=== PATIENT | female | born 1970 | race Caucasian/White ===

== ENCOUNTER 2019-02-06 05:54 | Day surgery (SDC) | payer MEDICAID ==
[2019-02-01 17:33] LABS: BASOPHILS % (AUTO) 0.2 % (0.0-2.0); EOSINOPHILS # (AUTO) 0.1 K/uL (0-0.4); EOSINOPHILS % (AUTO) 1.2 % (0.0-4.0); HEMATOCRIT 38.6 % (36-48); HEMOGLOBIN 12.8 g/dL (12.0-16.0); LYMPHOCYTES # (AUTO) 1.8 K/uL (2.5-16.5); LYMPHOCYTES % (AUTO) 29.1 % (20.5-51.1); MEAN CORPUSCULAR HEMOGLOBIN 28 pg (27-31); MEAN CORPUSCULAR HGB CONC 33 g/dL (33-37); MEAN CORPUSCULAR VOLUME 83.8 fL (80-94); MONOCYTES # (AUTO) 0.7 K/uL (0.8-1.0); MONOCYTES % (AUTO) 11.8 % (1.7-9.3); NEUTROPHILS # (AUTO) 3.6 K/uL (1.8-7.7); NEUTROPHILS % (AUTO) 57.7 % (42.2-75.2); PLATELET COUNT (AUTO) 201 K/uL (140-450); RED BLOOD CELL COUNT(AUTO) 4.61 MIL/uL (4.20-5.40); RED CELL DISTRIBUTION WIDTH 13.4 % (11.6-13.7); WHITE BLOOD COUNT (AUTO) 6.2 K/uL (4.8-10.8)
[2019-02-01 17:52] LABS: ALBUMIN 3.9 g/dL (3.4-5.0); ANION GAP 11.8 (8-16); CARBON DIOXIDE 26.4 mmol/L (21-32); POTASSIUM 4.2 mmol/L (3.5-5.1); TOTAL BILIRUBIN 0.6 mg/dL (0.0-1.0)
[~2019-02-06] VITALS: Ht 157.5 cm; Wt 87.5 kg
[2019-02-06] MEDS ORDERED: ceFAZolin 1,000 MG VIAL ONE (07:28)
[2019-02-06] MEDS ORDERED: LIDOCAINE 1% 500 MG/50 ML VIAL ONE (07:28)
[2019-02-06] MEDS ORDERED: BUPIVACAINE-MPF 0.25% 30 ML VIAL INJ ONE (07:29)
[2019-02-06] MEDS ORDERED: PROPOFOL 200 MG/20 ML VIAL IV ONE (07:40)
[2019-02-06] MEDS ORDERED: MIDAZOLAM 2 MG/2 ML VIAL ONE (07:58)
[2019-02-06] MEDS ORDERED: fentaNYL 0.05 MG/ML VIAL ONE (07:58)
[2019-02-06] MEDS ORDERED: LACTATED RINGERS 1,000 ML IV SCH (08:12)
[2019-02-06] MEDS ORDERED: MEPERIDINE 25 MG/ML SYR IVP PRN (08:15)
[2019-02-06] MEDS ORDERED: ONDANSETRON 4 MG/2 ML VIAL IVP PRN (08:15)
[2019-02-06] MEDS ORDERED: HYDROmorphone 1 MG/ML AMP IVP PRN ×2 (08:15→09:15)
[2019-02-06] MEDS ORDERED: diphenhydrAMINE 50 MG/ML VIAL IVP PRN (08:15)
[2019-02-06] MEDS ORDERED: HYDROcodone/APAP 5/325 MG 1 TAB TAB PO PRN (09:15)
[2019-02-06] MEDS ORDERED: ONDANSETRON 4 MG/2 ML VIAL IV PRN (09:15)
[2019-02-06] MEDS ORDERED: MORPHINE SULFATE 4 MG/ML SYR IV PRN (09:15)
[2019-02-06] MEDS ORDERED: MORPHINE SULFATE 2 MG/ML SYR IVP PRN (09:15)
[2019-02-06] MEDS ORDERED: HYDROmorphone PFS 2 MG/ML SYR ONE (09:38)
== END 2019-02-06 10:45 | disposition home or self-care (01) ==
LOC: MOR 05:54 → MMU 06:08 → MOR 10:45
PROVIDERS: ATTEND Surgery
DX: C50.911 Malignant neoplasm of unspecified site of right female breast (principal); E66.01 Morbid (severe) obesity due to excess calories
CPT/HCPCS: 36415; 36561; 71045; 76937; 77001; 80053; 81025; 85025; 93005; C1788; J0690; J1170; J1644; J2001; J2250; J2704; J3010; J3490; J7030; J7120; Q0092; J7060

== ENCOUNTER 2019-02-20 14:49 | Inpatient (IN) | payer MEDICAID ==
[~2019-02-20] VITALS: Ht 162.6 cm; Wt 86.2 kg
[2019-02-20 15:16] VITALS: BP 115/76
[2019-02-20] MEDS ORDERED: NACL 0.9% 1,000 ML IV ONE (15:25)
[2019-02-20 16:17] LABS: BASOPHILS % (AUTO) 0.2 % (0.0-2.0); EOSINOPHILS % (AUTO) 0.3 % (0.0-4.0); HEMATOCRIT 34.3 % (36-48); HEMOGLOBIN 11.6 g/dL (12.0-16.0); LYMPHOCYTES # (AUTO) 1.3 K/uL (2.5-16.5); LYMPHOCYTES % (AUTO) 12.7 % (20.5-51.1); MEAN CORPUSCULAR HEMOGLOBIN 28 pg (27-31); MEAN CORPUSCULAR HGB CONC 34 g/dL (33-37); MEAN CORPUSCULAR VOLUME 83.1 fL (80-94); MONOCYTES # (AUTO) 0.8 K/uL (0.8-1.0); MONOCYTES % (AUTO) 8.2 % (1.7-9.3); NEUTROPHILS # (AUTO) 7.9 K/uL (1.8-7.7); NEUTROPHILS % (AUTO) 78.6 % (42.2-75.2); PLATELET COUNT (AUTO) 140 K/uL (140-450); RED BLOOD CELL COUNT(AUTO) 4.13 MIL/uL (4.20-5.40); RED CELL DISTRIBUTION WIDTH 13.6 % (11.6-13.7)
--- NOTE | 2019-02-20 16:26 | NUR ---
PT AMB TO BED 2
--- NOTE | 2019-02-20 16:27 | NUR ---
referred by dr. luevano s/p port a cath placement x 2 wks ago---sutures remain intact no drainage noted circular area surrounding surgical incision red inflammed edema hot to touch hx----breast ca stage 2-3, rx----chemo 02/09/2019 PATIENT STATES PAIN OF 0/10 AT THIS TIME. PATIENT POSITIONED FOR COMFORT; HOB ELEVATED; BEDRAILS UP X1; BED DOWN. ER MD MADE AWARE OF PT STATUS.
--- NOTE | 2019-02-20 16:36 | NUR ---
CAN'T PROVIDE URINE AT THIS TIME
[2019-02-20 16:43] LABS: POTASSIUM 3.7 mmol/L (3.5-5.1)
[2019-02-20 16:44] LABS: ALBUMIN 3.3 g/dL (3.4-5.0); ANION GAP 13.4 (8-16); CARBON DIOXIDE 29.3 mmol/L (21-32); CREATININE 0.8 mg/dL (0.6-1.3); TOTAL BILIRUBIN 0.2 mg/dL (0.0-1.0)
[2019-02-20] MEDS ORDERED: DEXT 5% /NACL 0.9% 1,000 ML IV SCH (17:23)
[2019-02-20] MEDS ORDERED: HYDROcodone/APAP 7.5/325 MG 1 TAB PO PRN (17:25)
[2019-02-20] MEDS ORDERED: ACETAMINOPHEN 325 MG TAB PO PRN ×2 (17:25→17:55)
[2019-02-20] MEDS ORDERED: ONDANSETRON 4 MG/2 ML VIAL IVP PRN (17:25)
[2019-02-20] MEDS ORDERED: NACL 0.9% 1,000 ML IV SCH (17:54)
[2019-02-20] MEDS ORDERED: MORPHINE SULFATE 2 MG/ML SYR IVP PRN (17:55)
[2019-02-20] MEDS ORDERED: HYDROcodone/APAP 5/325 MG 1 TAB TAB PO PRN (17:55)
[2019-02-20] MEDS ORDERED: MORPHINE SULFATE 4 MG/ML SYR IV PRN (17:55)
[2019-02-20] MEDS ORDERED: HYDROmorphone 1 MG/ML AMP IVP PRN (17:55)
[2019-02-20] MEDS ORDERED: ONDANSETRON 4 MG/2 ML VIAL IV PRN (17:55)
[2019-02-20 18:10] VITALS: BP 119/75
--- NOTE | 2019-02-20 18:10 | NUR ---
RECEIVED REPORT FROM ED NURSE RUPERTO. PT BROUGHT IN VIA WHEELCHAIR, AMBULATED AND TRANSFERRED TO [facility] BED WITH STEADY GAIT. AAOX4, NO C/O PAIN AT THIS TIME. NOTED REDNESS ON LT SIDE OF CHEST, DX INFECTED PORT A CATH. VSS, BP 119/78, HR 91. IV ON RT AC 20 GA ON SALINE LOCK. RESPIRATIONS EVEN AND UNLABORED ON RA. ABD SOFT, ACTIVE BOWEL SOUNDS. SKIN IS INTACT, WARM TO TOUCH. PT IS AWARE THAT SHE IS ON NPO. EXPLAINED POC WITH PT, PT VERBALIZED UNDERSTANDING.
--- NOTE | 2019-02-20 18:10 | NUR ---
Patient will be admitted to care of DR RAINEY. Admited to MS. Will go to room 111B. Belongings list completed. Report to ANDRÉS LOPEZ.
[2019-02-20 18:28] LABS: APPEARANCE,URINE CLEAR (CLEAR); BILIRUBIN,URINE NEGATIVE (NEGATIVE); BLOOD, URINE TRACE-I (NEGATIVE); COLOR,URINE YELLOW (YELLOW); LEUKOCYTE ESTERASE ,URINE TRACE (NEGATIVE); NITRITE, URINE NEGATIVE (NEGATIVE); UGLUCOSE NEGATIVE (NEGATIVE)
[2019-02-20 18:29] LABS: BARBITURATE, URINE NEGATIVE ng/ml (NEG <=200); BENZODIAZEPINE, URINE NEGATIVE ng/mL (NEG <=200); CANNABINOID, URINE NEGATIVE ng/mL (NEG <=50); COCAINE, URINE NEGATIVE ng/mL (NEG <=300); OPIATE, URINE NEGATIVE ng/mL (NEG <=2000); PHENCYCLIDINE SCREEN,URINE NEGATIVE ng/mL (NEG <=25)
[2019-02-20] MEDS: DEXT 5% /NACL 0.9% 1,000 ML IV SCH (18:30)
[2019-02-20] MEDS: NAFCILLIN 2,000 MG in DEXTROSE 5% 100 ML IV SCH (18:32)
[2019-02-20 18:36] LABS: RBC,URINE 0-5 /HPF (0-5); WBC,URINE 0-5 /HPF (0-5)
--- NOTE | 2019-02-20 19:10 | NUR ---
RECEIVED ENDORSEMENT FROM PASQUALE LOPEZ DAYSHIFT NURSE AT BEDSIDE FOR CONTINUITY OF CARE, PT IN STABLE CONDITION.
--- NOTE | 2019-02-20 19:10 | NUR ---
ENDORSED PT TO DIALYSIS SOCIAL WORKER NURSE. NO SIGNS OF DISTRESS AT THIS TIME.
[2019-02-20 20:00] VITALS: BP 106/71
--- NOTE | 2019-02-20 20:00 | NUR ---
PT SITTING UP IN BED, AOX4, SKIN INTACT EXCEPT FOR LEFT UPPER CHEST WHERE MEDIPORT WAS INSERTED. AREA IS REDDENED WITH 6 STITCHES. AREA SLIGHTLY MOIST DRY DRESSING PLACED ON AREA IV SITE IS ON R AC 20 G RUNNING D51/2 NS AT 100MLS/HR. V/S FOLLOWS T 98.0 P 79 R 18 B/P 106/71 02 98% ON ROOM AIR.
[2019-02-20 20:08] LABS: FREE T4 (FREE THYROXINE) 1.55 ng/dL (0.76-1.46); MAGNESIUM 2.4 mg/dL (1.8-2.4); PHOSPHORUS 3.2 mg/dL (2.5-4.9); THYROID STIMULATING HORMONE 0.73 uIU/mL (0.34-3.74)
[2019-02-20] MEDS: DOCUSATE SODIUM 100 MG GELCAP PO SCH (21:00)
--- NOTE | 2019-02-20 21:00 | NUR ---
PT DECLINED ORDERED COLACE. PT ALSO SIGNED CONSENT FOR MEDIPORT REMOVAL.
[2019-02-20] MEDS ORDERED: cefTRIAXone 1,000 MG VIAL ONE (22:10)
--- NOTE | 2019-02-20 23:40 | NUR ---
PT TAKEN TO OR FOR MEDIPORT REMOVAL. LAST V/S BEFORE LEAVING FLOOR T 98 P 92 R 18 B/P 124/77 02 97% ON ROOM AIR. IV SITE 20G RAC INTACT AND FLUSHED PATENT. PRE OP TEACHING DONE PT REMAINED NPO.
[2019-02-20] MEDS ORDERED: KETAMINE 500 MG/5 ML VIAL ONE (23:51)
[2019-02-20] MEDS ORDERED: MIDAZOLAM 2 MG/2 ML VIAL ONE (23:51)
[2019-02-20] MEDS ORDERED: BUPIVACAINE-MPF/EPI 0.5% 30 ML VIAL INJ ONE (23:52)
[2019-02-20] MEDS ORDERED: LIDOCAINE 1% 500 MG/50 ML VIAL ONE (23:58)
[2019-02-21] VITALS: BP 124/77
[2019-02-21] MEDS ORDERED: ceFAZolin 1,000 MG VIAL ONE (00:01)
[2019-02-21] MEDS ORDERED: ONDANSETRON 4 MG/2 ML VIAL IVP PRN (00:15)
[2019-02-21] MEDS ORDERED: HYDROmorphone 1 MG/ML AMP IVP PRN (00:15)
--- NOTE | 2019-02-21 01:25 | NUR ---
PT RETURNED TO ROOM 11B. PT HAS 5LB SANDBAG PLACEMENT OVER LEFT UPPER CHEST. SERA AND DRY DRESSING UNDER SANDBAGS. PT IS ALERT AND AWAKE V/S FOLLOWS T 98.4 P 94 R 20 B/P 133/84 02 975. PT WAS A LITTLE UPSET THAT SHE HAD AN INFECTION IN MEDIPORT PT SAID THAT SHE HAD WANTED TO HAVE CHEMO.
[2019-02-21] MEDS: NAFCILLIN 2,000 MG in DEXTROSE 5% 100 ML IV SCH ×5 (01:40→23:25)
--- NOTE | 2019-02-21 01:50 | NUR ---
PT IN BED RESTING WITH EYES CLOSED BUT AROUSABLE TO NAME AND LIGHT TOUCH. V/S FOLLOWS T 98.3 P 86 R 18 B/P 115/75 02 97% ON ROOM AIR.
--- NOTE | 2019-02-21 02:15 | NUR ---
PT IN BED SANDBAGS IN PLACE NO S/S OF BLEEDING NOTED. PT RESTING WITH EYES CLOSED V/S FOLLOWS T 98.3 P 86 R 18 B/P 114/78 02 97% ON ROOM AIR. PT DENIES PAIN.
--- NOTE | 2019-02-21 02:30 | NUR ---
PT IN BED NO C/O VOICED NO S/S OF BLEEDING. SANDBAGS IN PLACE V/S FOLLOWS T 97.2 P 85 R 18 B/P 112/77 02 97% ON ROOM AIR.
--- NOTE | 2019-02-21 03:00 | NUR ---
PT IN BED V/S FOLLOWS T 97.9 P 87 R 18 B/P 110/77 02 97% ON ROOM AIR. SANDBAGS IN PLACE, SIDE RAILS UP X2 NO C/O VOICED.
--- NOTE | 2019-02-21 03:30 | NUR ---
PT IN BED V/S FOLLOWS T 97.5 P 87 R 18 B/P 114/75 02 97% ON ROOM AIR.
--- NOTE | 2019-02-21 06:00 | NUR ---
UNIPEN HUNG AND RUNNING ORDERED. PT IN BED SHE DENIES PAIN, SANDBAGS IN PLACE NO S/S OF BLEEDING NOTED. PT ASSISTED TO TOILET AND BACK ALL REQUESTED NEEDS ATTENDED AND CALL [place] IN REACH.
[2019-02-21] MEDS: DEXT 5% /NACL 0.9% 1,000 ML IV SCH (06:05)
--- NOTE | 2019-02-21 07:25 | NUR ---
RECEIVED REPORT FROM MARINE SERVICE MANAGER NURSE KAREN FOR CONTINUITY OF CARE. PT IN STABLE CONDITION. RESPIRATIONS EVEN AND UNLABORED, ROOM AIR. IV INTACT AND PATENT. SAFETY MEASURES IN PLACE. BED IN LOW POSITION. CALL LIGHT AT BEDSIDE. WILL CONTINUE TO MONITOR.
[2019-02-21 08:00] VITALS: BP 116/77
[2019-02-21] MEDS: NACL 0.9% 1,000 ML IV SCH ×2 (08:25→19:48)
--- NOTE | 2019-02-21 08:34 | NUR ---
PATIENT HAS BEEN SCREENED AND CATEGORIZED MODERATE NUTRITION RISK. PATIENT WILL BE SEEN WITHIN 3-5 DAYS OF ADMISSION. 02/23/19ARNA[address]
--- NOTE | 2019-02-21 08:50 | NUR ---
GAVE ORDERED DUE MEDICATIONS AT THIS TIME. PT TOLERATED WELL. RESPIRATIONS EVEN AND UNLABORED. BED IN LOW POSITION. CALL LIGHT AT BEDSIDE. WILL CONTINUE TO MONITOR.
[2019-02-21] MEDS: DOCUSATE SODIUM 100 MG GELCAP PO SCH ×2 (08:52→20:48)
[2019-02-21] MEDS: FAMOTIDINE 20 MG TAB PO SCH (08:53)
[2019-02-21] MEDS: LACTOBACILLUS RHAMNOSUS GG 1 EACH CAP PO SCH (08:53)
--- NOTE | 2019-02-21 10:33 | NUR ---
PT LYING IN BED SLEEPING AT THIS TIME. RESPIRATIONS EVEN AND UNLABORED. BED IN LOW POSITION. CALL LIGHT AT BEDSIDE. WILL CONTINUE TO MONITOR.
[2019-02-21 11:15] LABS: CHOL/HDL RATIO 5.8 (1-4.5)
[2019-02-21 11:20] LABS: HEMATOCRIT 30.8 % (36-48); HEMOGLOBIN 10.3 g/dL (12.0-16.0); MEAN CORPUSCULAR HEMOGLOBIN 28 pg (27-31); MEAN CORPUSCULAR HGB CONC 34 g/dL (33-37); MEAN CORPUSCULAR VOLUME 84.6 fL (80-94); PLATELET COUNT (AUTO) 114 K/uL (140-450); RED BLOOD CELL COUNT(AUTO) 3.64 MIL/uL (4.20-5.40); RED CELL DISTRIBUTION WIDTH 13.8 % (11.6-13.7); WHITE BLOOD COUNT (AUTO) 8.6 K/uL (4.8-10.8)
[2019-02-21 11:31] LABS: MAGNESIUM 2.3 mg/dL (1.8-2.4); PHOSPHORUS 3.2 mg/dL (2.5-4.9)
[2019-02-21 11:35] LABS: LYMPHOCYTES % (MANUAL) 13 % (20-46); MONOCYTES % (MANUAL) 10 % (5-12)
--- NOTE | 2019-02-21 11:40 | NUR ---
WOUND CARE EVALUATION NOTE: REASON FOR EVALUATION: S/P REMOVAL OF PORT -A -CATH WOUND ASSESSMENT DONE TO SURGICAL WOUND TO LEFT CHEST WALL S/P REMOVAL OF PORT -A -CATH, WOUND SITE CLEAN AND DRY WITH MULTIPLE SERA, IN PLACE, RYNE-WOUND SKIN INTACT SLIGHTLY REDNESS AND SWELLING OBSERVED NORMAL POST OP SKIN CONDITION. NO PAIN. LEFT NECK [address], AREA IS DRY WITH SLIGHTLY REDNESS NOTICED. PER PT. PT. IS ALERT AND ORIENTED.IT WAS DONE BY PREVIOUS SURGEON ABOUT 2 WEEKS AGO. WOUND CARE TEACHING DONE PT. VERBALIZES UNDERSTANDING. POC DISCUSSED WITH PRIMARY RN. RECOMMENDATIONS: -CLEANSE LEFT CHEST WALL SURGICAL WOUND WITH NS, PAT DRY AND APPLY COMPOSITE DRESSING DAILY -CONTINUE TO MONITOR LEFT NECK SUTURE LINES AND REPORT S/S OF ABNORMAL FINDING -F/U WITH SURGEON 10-14 DAYS AFTER DISCHARGE FOR REMOVING OF SERA AND SUTURES
[2019-02-21 13:11] LABS: ANION GAP 14.2 (8-16); CARBON DIOXIDE 24.7 mmol/L (21-32); POTASSIUM 3.9 mmol/L (3.5-5.1)
[2019-02-21 13:12] LABS: CREATININE 0.6 mg/dL (0.6-1.3)
--- NOTE | 2019-02-21 13:52 | NUR ---
PT LYING IN BED TALKING TO FAMILY AT BED SIDE IN STABLE CONDITION. RESPIRATIONS EVEN AND UNLABORED. BED IN LOW POSITION. CALL LIGHT AT BEDSIDE. WILL CONTINUE TO MONITOR.
--- NOTE | 2019-02-21 15:40 | NUR ---
RT AT BEDSIDE AT THIS TIME. RESPIRATIONS EVEN AND UNLABORED. BED IN LOW POSITION. CALL LIGHT AT BEDSIDE. WILL CONTINUE TO MONITOR.
--- NOTE | 2019-02-21 15:41 | NUR ---
IS PERFORMED BY PT, ACTUAL 2299, PREDICTED 1999. RN aware.
[2019-02-21 16:00] VITALS: BP 122/74
--- NOTE | 2019-02-21 16:34 | NUR ---
PT WALKING AROUND UNIT IN STABLE CONDITION. GAIT STEADY. RESPIRATIONS EVEN AND UNLABORED. WILL CONTINUE TO MONITOR.
--- NOTE | 2019-02-21 19:30 | NUR ---
GAVE REPORT TO EMD TEACHER NURSE FOR CONTINUITY OF CARE. PT IN STABLE CONDITION.
--- NOTE | 2019-02-21 19:31 | NUR ---
RECEIVED REPORT FROM DAY RN. PT IS AAO X4. RESPIRATIONS EVEN AND UNLABORED, ROOM AIR. IV INTACT AND PATENT. IVF INFUSING PER ORDERS. PT HAD REMOVAL OF PORT CATH YESTERDAY 02/20 HAS DRESSING ON L CHEST C/D/I AND BAND-AID ON L NECK C/D/I. PER RN DR AMES ATTEMPTED TO REMOVE SUTURES BUT WAS TOO SWOLLEN DR LOWE WILL COME IN TONIGHT. SAFETY MEASURES IN PLACE. BED IN LOW POSITION. CALL LIGHT AT BEDSIDE. WILL CONTINUE TO MONITOR.
--- NOTE | 2019-02-21 20:48 | NUR ---
RANDI MEDICATIONS GIVEN PT TOLERATED WELL. PT DENIES ANY PAIN. CHANGED DRESSING PER REQUEST. DRESSING WAS CHANGED TODAY BY WOUND CARE NURSE. REMOVED DRESSING WITH MINIMAL YELLOW AND RED DRAINAGE NO ODOR. HAS 6 SERA WOUND BED IS RED. CLEANS WITH NS AND PAT DRY. APPLIED CLEAN DRESSING. WILL CONTINUE TO MONITOR. ALL NEEDS MET AT THIS TIME. WILL CONTINUE TO MONITOR.
--- NOTE | 2019-02-21 22:30 | NUR ---
PT IS SLEEPING COMFORTABLY IN BED. CHEST RISE AND FALL. CALL LIGHT IS WITHIN REACH. WILL CONTINUE TO MONITOR.
--- NOTE | 2019-02-21 23:25 | NUR ---
IV ANTIBIOTICS NOW INFUSING PER ORDERS. VITAL SIGNS ARE WITHIN NORMAL LIMITS. NO S/S OF DISTRESS. ALL NEEDS MET AT THIS TIME. WILL CONTINUE TO MONITOR.
[2019-02-22] VITALS: BP 116/78
--- NOTE | 2019-02-22 01:18 | NUR ---
PATIENT IS RESTING COMFORTABLY IN BED WITH EYES CLOSED. CHEST RISE AND FALL. CALL LIGHT IS WITHIN REACH. WILL CONTINUE TO MONITOR.
--- NOTE | 2019-02-22 03:30 | NUR ---
PT IS SLEEPING COMFORTABLY IN BED. CHEST RISE AND FALL. CALL LIGHT IS WITHIN REACH. WILL CONTINUE TO MONITOR.
[2019-02-22] MEDS: NAFCILLIN 2,000 MG in DEXTROSE 5% 100 ML IV SCH (05:19)
--- NOTE | 2019-02-22 05:19 | NUR ---
IV ANTIBIOTIC NOW INFUSING PER ORDERS. ALL NEEDS MET AT THIS TIME. WILL CONTINUE TO MONITOR.
--- NOTE | 2019-02-22 07:19 | NUR ---
GAVE BEDSIDE REPORT TO DAY RN. PT ENDORSED IN STABLE CONDITION.
[2019-02-22 07:34] LABS: ANION GAP 12.8 (8-16); CARBON DIOXIDE 24.8 mmol/L (21-32); CREATININE 0.7 mg/dL (0.6-1.3); POTASSIUM 3.6 mmol/L (3.5-5.1)
[2019-02-22 07:38] VITALS: BP 122/74
[2019-02-22 07:41] LABS: BASOPHILS % (AUTO) 0.2 % (0.0-2.0); EOSINOPHILS % (AUTO) 0.2 % (0.0-4.0); HEMATOCRIT 29.1 % (36-48); HEMOGLOBIN 9.8 g/dL (12.0-16.0); LYMPHOCYTES # (AUTO) 1.2 K/uL (2.5-16.5); MEAN CORPUSCULAR HEMOGLOBIN 29 pg (27-31); MEAN CORPUSCULAR HGB CONC 34 g/dL (33-37); MEAN CORPUSCULAR VOLUME 84.2 fL (80-94); MONOCYTES # (AUTO) 0.4 K/uL (0.8-1.0); MONOCYTES % (AUTO) 6.9 % (1.7-9.3); NEUTROPHILS # (AUTO) 4.8 K/uL (1.8-7.7); NEUTROPHILS % (AUTO) 73.7 % (42.2-75.2); PLATELET COUNT (AUTO) 121 K/uL (140-450); RED BLOOD CELL COUNT(AUTO) 3.45 MIL/uL (4.20-5.40); RED CELL DISTRIBUTION WIDTH 13.7 % (11.6-13.7); WHITE BLOOD COUNT (AUTO) 6.5 K/uL (4.8-10.8)
--- NOTE | 2019-02-22 07:54 | NUR ---
RECEIVED BED SIDE REPORT FROM HEALTH POLICY NURSE RN. PT A/O X4, VS STABLE, O2 SAT 91%, PT FOUND WITHOUT OXYGEN NASAL CANNULA. APPLIED NC O2 2L. WHEEZING HEARD BILAT. CALLED LALY TANNER AT 3034 TO GIVE PT A BREATHING TX. PT ALSO REQUESTED A BREATHING TX. SKIN INTACT. RIGHT AC 20G RUNNING NS AT 50CC/HR. STOOL CULTURE AND WBC STOOL STILL TO BE COLLECTED. LAST BM YESTERDAY 02/20 BUT UNCOLLECTED BY HEALTH POLICY NURSE RN. PT DENIES PAIN. LEFT DRESSING ON LEFT UPPER CHEST. NO DRAINAGE NOTED. LEFT BANDAGE NOTED ON LEFT NECK, NO DRAINAGE NOTED. REDNESS AROUND BANDAGE NOTED. EDUCATED PT ON THE IMPORTANCE OF USING IS. PT STATED THAT SHE REGULARLY USES IS. PT STATED SHE WILL AMBULATE AROUND UNIT. WILL CONTINUE TO MONITOR. Addendum: 02/22/19 at 0801 by Tyrell Calderón RN WRONG PATIENT.
--- NOTE | 2019-02-22 08:03 | NUR ---
RECEIVED BED SIDE REPORT FROM TRACER LATHE SET UP OPERATOR RN. PT A/O X4, ON REGULAR DIET, TOLERATING DIET WELL. RIGHT AC 20G RUNNING NS AT 50CC/HR. PT HAS LEFT UPPER CHEST DRESSING, NO DRAINAGE NOTED, AND A BANDAGE ON LEFT NECK, NO DRAINAGE NOTED. WOUND CARE EVAL DONE YESTERDAY. VS STABLE. ON RA IN NO RESP DISTRESS. STOOL CULTURE AND WBC STOOL STILL TO BE COLLECTED. LAST BM YESTERDAY 02/20 BUT UNCOLLECTED BY TRACER LATHE SET UP OPERATOR RN. STILL WAITING FOR RESULTS FOR CATH SPECIMEN. PT DENIES PAIN. CALL LIGHT WITHIN REACH, WILL CONTINUE TO MONITOR.
[2019-02-22] MEDS: LACTOBACILLUS RHAMNOSUS GG 1 EACH CAP PO SCH (08:46)
[2019-02-22] MEDS: DOCUSATE SODIUM 100 MG GELCAP PO SCH (08:46)
[2019-02-22] MEDS: FAMOTIDINE 20 MG TAB PO SCH (08:47)
[2019-02-22] MEDS ORDERED: CEPH250C16 PO (08:50)
--- NOTE | 2019-02-22 08:54 | NUR ---
GAVE AM MEDS. PT TOLERATED WELL. DENIES PAIN. WILL CONTINUE TO MONITOR.
--- NOTE | 2019-02-22 10:01 | NUR ---
GAVE DC INSTRUCTIONS TO PT. PT A/O X4, VERBALIZED UNDERSTANDING. GAVE RX MEDS. EDUCATED PT ON WHEN TO COME TO ER. EDUCATED PT ON SCHEDULING APPOINTMENT WITH , GAVE PT 'S CARD. WAITING FOR TO PICK PT UP. TOLD PT TO NOTIFY ME WHEN IS HERE.
--- NOTE | 2019-02-22 10:46 | NUR ---
PT DC. PT WALKED OFF UNIT WITH AND ALL PERSONAL BELONGINGS TAKEN WITH PT. IV TAKEN OUT. WRISTBAND CUT OFF. DC PHOTOGRAPHS TAKEN.
--- NOTE | 2019-02-22 10:47 | NUR ---
PER , WBC STOOL OR STOOL CULTURE NO LONGER NEEDED
== END 2019-02-22 10:46 | disposition home or self-care (01) | DRG 206 ==
LOC: MED 14:49 → MTU 17:23
PROVIDERS: ADMIT General Practice; ATTEND General Practice
PROC: 0JPV0WZ Removal of Totally Implantable Vascular Access Device from Upper Extremity Subcutaneous Tissue and Fascia, Open Approach (ICD-10-PCS; principal; 2019-02-20 23:30)
DX: T82.7XXA Infection and inflammatory reaction due to other cardiac and vascular devices, implants and grafts, initial encounter (principal); C50.919 Malignant neoplasm of unspecified site of unspecified female breast; E44.1 Mild protein-calorie malnutrition; I10 Essential (primary) hypertension; E78.5 Hyperlipidemia, unspecified; N39.0 Urinary tract infection, site not specified; Z68.32 Body mass index [BMI] 32.0-32.9, adult; Z82.49 Family history of ischemic heart disease and other diseases of the circulatory system; Z83.430 Family history of elevated lipoprotein(a); Y83.8 Other surgical procedures as the cause of abnormal reaction of the patient, or of later complication, without mention of misadventure at the time of the procedure; Y92.89 Other specified places as the place of occurrence of the external cause
CPT/HCPCS: 36415; 71045; 80048; 80053; 80305; 81001; 82140; 82150; 83036; 83605; 83690; 83735; 83880; 84100; 84439; 84443; 84484; 85025; 85610; 85730; 87040; 87070; 87081; 87086; 87186; 88300; 93005; 96360; 99285; J0690; J0696; J1644; J2001; J2250; J3490; J7030; J7042; J7060

== ENCOUNTER 2019-03-13 05:55 | Day surgery (SDC) | payer MEDICAID ==
[2019-03-12 17:55] LABS: BASOPHILS % (AUTO) 0.3 % (0.0-2.0); EOSINOPHILS % (AUTO) 0.1 % (0.0-4.0); HEMATOCRIT 32.5 % (36-48); HEMOGLOBIN 10.8 g/dL (12.0-16.0); LYMPHOCYTES # (AUTO) 1.1 K/uL (2.5-16.5); LYMPHOCYTES % (AUTO) 14.3 % (20.5-51.1); MEAN CORPUSCULAR HEMOGLOBIN 28 pg (27-31); MEAN CORPUSCULAR HGB CONC 33 g/dL (33-37); MEAN CORPUSCULAR VOLUME 86.1 fL (80-94); MONOCYTES % (AUTO) 13.5 % (1.7-9.3); NEUTROPHILS # (AUTO) 5.5 K/uL (1.8-7.7); NEUTROPHILS % (AUTO) 71.8 % (42.2-75.2); PLATELET COUNT (AUTO) 137 K/uL (140-450); RED BLOOD CELL COUNT(AUTO) 3.78 MIL/uL (4.20-5.40); RED CELL DISTRIBUTION WIDTH 14.7 % (11.6-13.7); WHITE BLOOD COUNT (AUTO) 7.7 K/uL (4.8-10.8)
[2019-03-12 18:17] LABS: ALBUMIN 3.4 g/dL (3.4-5.0); ANION GAP 13.9 (8-16); CREATININE 0.6 mg/dL (0.6-1.3); POTASSIUM 3.9 mmol/L (3.5-5.1); TOTAL BILIRUBIN 0.2 mg/dL (0.0-1.0)
[~2019-03-13] VITALS: Ht 154.9 cm; Wt 86.6 kg
[~2019-03-13 05:55] MED LIST: CEPH250C16 PO
[2019-03-13] MEDS ORDERED: ceFAZolin 1,000 MG VIAL ONE (07:20)
[2019-03-13] MEDS ORDERED: BUPIVACAINE-MPF 0.25% 30 ML VIAL INJ ONE (07:20)
[2019-03-13] MEDS ORDERED: LIDOCAINE 1% 500 MG/50 ML VIAL ONE (07:24)
[2019-03-13] MEDS ORDERED: PROPOFOL 200 MG/20 ML VIAL IV ONE (08:45)
[2019-03-13] MEDS ORDERED: ONDANSETRON 4 MG/2 ML VIAL IVP PRN (10:05)
[2019-03-13] MEDS ORDERED: MEPERIDINE 25 MG/ML SYR IVP PRN (10:05)
[2019-03-13] MEDS ORDERED: LACTATED RINGERS 1,000 ML IV SCH (10:05)
[2019-03-13] MEDS ORDERED: diphenhydrAMINE 50 MG/ML VIAL IVP PRN (10:05)
[2019-03-13] MEDS ORDERED: HYDROmorphone 1 MG/ML AMP IVP PRN ×2 (10:05→11:30)
[2019-03-13] MEDS ORDERED: MIDAZOLAM 2 MG/2 ML VIAL ONE (11:13)
[2019-03-13] MEDS ORDERED: fentaNYL 0.05 MG/ML VIAL ONE (11:14)
[2019-03-13] MEDS ORDERED: ONDANSETRON 4 MG/2 ML VIAL IV PRN (11:30)
[2019-03-13] MEDS ORDERED: MORPHINE SULFATE 2 MG/ML SYR IVP PRN (11:30)
[2019-03-13] MEDS ORDERED: MORPHINE SULFATE 4 MG/ML SYR IV PRN (11:30)
== END 2019-03-13 12:40 | disposition home or self-care (01) ==
LOC: MOR 05:55 → MMU 06:15 → MOR 12:40
PROVIDERS: ATTEND Surgery
DX: Z45.2 Encounter for adjustment and management of vascular access device (principal); C50.911 Malignant neoplasm of unspecified site of right female breast; E66.01 Morbid (severe) obesity due to excess calories; E78.00 Pure hypercholesterolemia, unspecified; J98.11 Atelectasis
CPT/HCPCS: 36415; 36558; 71045; 76937; 77001; 80053; 81025; 85025; 93005; C1751; J0690; J1644; J2001; J2250; J2704; J3010; J3490; J7030; J7060; J7120; Q0092